=== PATIENT | female | born 1995 | race Caucasian/White ===

== ENCOUNTER 2019-05-27 10:51 | Emergency (ER) | payer SELFPAY ==
[2019-05-27 11:08] VITALS: BP 150/80
[2019-05-27] MEDS ORDERED: DIPH/PERTUSS(ACELL)/TETANUS VAC/PF 0.5 ML SYR (>=10YO) IM ONE (11:09)
--- NOTE | 2019-05-27 11:14 | ER Document Report ---
HPI - HPI Time Seen by Provider: 05/27/19 11:00 Pain Level: 2 Notes: Patient is a 23-year-old female with no significant past medical history who presents complaining of dog bite to her legs bilaterally and an abrasion to her right arm. Patient states that there was a dog running around her vehicle and it was her neighbors was trying to get it back under control when she went outside to try to help and the dog bit her at that time. Unknown last tetanus. They know where the dog is and who the dog belongs to and will check on its immunization status. It was otherwise healthy-appearing. Denies drug allergies. Denies any headache, fever, neck pain, URI, sore throat, chest pain, palpitations, syncope, cough, shortness of breath, wheeze, dyspnea, abdominal pain, nausea/vomiting/diarrhea, urinary retention, dysuria, hematuria, loss of control of bowel or bladder, numbness/tingling, saddle anesthesia, muscle paralysis/weakness, or rash. - ROS Systems Reviewed and Negative: Yes All other systems reviewed and negative Past Medical History - Social History Smoking Status: Never Smoker Chew tobacco use (# tins/day): No Drug Abuse: None Family History: Reviewed & Not Pertinent Patient has suicidal ideation: No Patient has homicidal ideation: No Vertical Provider Document - CONSTITUTIONAL Agree With Documented VS: Yes Notes: PHYSICAL EXAMINATION: GENERAL: Well-appearing, well-nourished and in no acute distress. NECK: Normal range of motion, supple without lymphadenopathy LUNGS: Breath sounds clear to auscultation bilaterally and equal. No wheezes rales or rhonchi. HEART: Regular rate and rhythm without murmurs, rubs, gallops. Musculoskeletal: FROM to passive/active. Strength 5+/5. No bony tenderness throughout. Extremities: No cyanosis, clubbing, or edema b/l. Peripheral pulses 2+. Capillary refill less than 3 seconds. NEUROLOGICAL: Cranial nerves grossly intact. Normal speech, normal gait. Normal sensory, motor exams PSYCH: Normal mood, normal affect. SKIN: Multiple small superficial punctures to the b/l legs and an abrasion to the rt forearm. There is one large 3x1cm avulsion puncture wound noted left anterolateral lower leg. The wound appears to have some skin missing, not a true laceration. - INFECTION CONTROL TRAVEL OUTSIDE OF THE [place] IN LAST 30 DAYS: No Course - Re-evaluation Re-evalutation: 05/27/19 Patient is an afebrile, well-hydrated, 23-year-old female who presents to the ED with dog bite/puncture/avulsion skin injury. Vitals are acceptable. PE is otherwise unremarkable for any neurovascular compromise, obvious tendon/ligament rupture, obvious fracture/dislocation, septic joint. Patient is nontoxic- appearing and is tolerating p.o. without difficulties. Wound was thoroughly irrigated and cleansed. Wound edges of the large wound were loosely approximated appropriately utilizing 2 simple interrupted sutures to help facilitate healing. Wound dressing was placed and wound instructions reviewed. Patient tolerated procedure well without any complications. No further suture repair to the puncture wounds as reviewed with patient. Tetanus was updated today. No further labs or imaging warranted. Sutures will need removed in 10- 12 days. I did thoroughly review the risk and benefits of rabies vaccination series and patient has declined at this time. Patient is to find out the immunization status of the dog and the health of the dog at the neighbor and if she decides to change her mind at any point can come back for rabies vaccination series. Recheck with your PCM in 2-3 days. Consider consult orthopedics if needed. Return to the ED with any worsening/concerning symptoms otherwise as reviewed in discharge. Patient is in agreement. - Vital Signs Vital signs: Temp Pulse Resp BP Pulse Ox 97.9 F 100 18 150/80 H 100 05/27/19 11:06 05/27/19 11:06 05/27/19 11:06 05/27/19 11:06 05/27/19 11:06 Procedures - Laceration/Wound Repair Left Lower Leg Wound length (cm): 3 Wound's Depth, Shape: Other - avulsion puncture/lac Laceration pre-procedure: Sterile PPE donned, Sterile drapes applied, Other - chlorhexadine/saline Wound explored: No foreign body removed Irrigated w/ Saline (mLs): 300 Wound Repaired With: Sutures Suture Size/Type: 4:0, Ethilon Number of Sutures: 2 - very loose approximation Layer Closure?: No Post-procedure wound care: Sterile dressing applied Post-procedure NV exam normal: Yes Complications: No Discharge - Discharge Clinical Impression: Dog bite Qualifiers: Encounter type: initial encounter Qualified Code(s): W54.0XXA - Bitten by dog, initial encounter Condition: Stable Disposition: HOME, SELF-CARE Instructions: Animal Bites ([facility]) Additional Instructions: Keep the skin clean Wash with soap and water Tylenol/ibuprofen if needed Triple antibiotic ointment daily Take medication as directed Sutures will need removed in 10 to 12 days Monitor for any worsening symptoms Recheck with your PCM in 2-3 days Consider consult with orthopedics if needed Return to the ED with any worsening symptoms and/or development of fever, headache, chest pain, palpitations, syncope, shortness of breath, trouble breathing, abdominal pain, n/v/d, abscess, purulent discharge, red streaks, worsening swelling, or other worsening symptoms that are concerning to you. Prescriptions: Amoxicillin/Potassium Clav [Augmentin 875-125 Tablet] 1 tab PO BID #20 tab Ibuprofen [Motrin 800 mg Tablet] 800 mg PO Q8H PRN #15 tab PRN Reason: Forms: Elevated Blood Pressure Referrals: [facility] [Provider Group] - Follow up as needed
== END 2019-05-27 12:00 | disposition home or self-care (01) ==
LOC: ER 10:51
DX: S81.852A Open bite, left lower leg, initial encounter (principal); S50.811A Abrasion of right forearm, initial encounter; W54.0XXA Bitten by dog, initial encounter; Z23 Encounter for immunization
CPT/HCPCS: 90471; 90715; 99283